=== PATIENT | male | born 1960 | race Caucasian/White ===

== ENCOUNTER 2024-08-02 15:37 | Emergency (ER) | payer OTHER, MEDICARE ==
[~2024-08-02] VITALS: Ht 180.3 cm; Wt 75.0 kg
[2024-08-02 18:06] LABS: BASOPHILS # (AUTO) 0.1 X10'3 (0-0.2); BASOPHILS % (AUTO) 0.6 % (0-1); EOSINOPHILS # (AUTO) 0.1 X10'3 (0-0.9); EOSINOPHILS % (AUTO) 1.2 % (0-6); HEMATOCRIT 41.3 % (42.0-52.0); HEMOGLOBIN 13.9 g/dl (14.0-17.9); LYMPHOCYTES # (AUTO) 2.3 X10'3 (1.1-4.8); LYMPHOCYTES % (AUTO) 20.9 % (21-51); MEAN CORPUSCULAR HEMOGLOBIN 33.6 PG (27.0-31.0); MEAN CORPUSCULAR HGB CONC 33.7 g/dL (33.0-36.5); MEAN CORPUSCULAR VOLUME 99.9 FL (78-98); MEAN PLATELET VOLUME 6.9 FL (7.4-10.4); MONOCYTES # (AUTO) 0.7 X10'3 (0-0.9); MONOCYTES % (AUTO) 6.8 % (2-12); NEUTROPHILS # (AUTO) 7.7 X10'3 (1.8-7.7); NEUTROPHILS % (AUTO) 70.5 % (42-75); PLATELET COUNT 315 X10'3 (140-440); RED BLOOD COUNT 4.14 X10'6 (4.70-6.10); RED CELL DISTRIBUTION WIDTH 13.9 % (11.5-14.5); WHITE BLOOD COUNT 10.9 X10'3 (4.5-11.0)
[2024-08-02 18:13] LABS: BILIRUBIN,URINE NEGATIVE (Neg); CLARITY,URINE CLEAR (Clear); COLOR,URINE YELLOW (Yellow); GLUCOSE, URINE NEGATIVE (Neg); KETONES,URINE TRACE mg/dl (Neg); LEUKOCYTE ESTERASE ,URINE NEGATIVE (Neg); NITRITES, URINE NEGATIVE (Neg); OCCULT BLOOD,URINE TRACE-INTACT (Neg); PROTEIN,URINE TRACE mg/dl (Neg); UROBILINOGEN,URINE 0.2 E.U/dL (0.2-1.0)
[2024-08-02 18:18] LABS: UA COLLECTION TYPE NON-SPECIFIED
[2024-08-02 18:31] LABS: ALBUMIN 3.8 G/DL (3.4-5.0); ANION GAP 12 (8-16); BLOOD UREA NITROGEN 7 MG/DL (7-18); BUN/CREATININE RATIO 6.8 (10.0-20.0); CALCIUM 8.2 MG/DL (8.5-10.1); CHLORIDE 101 MMOL/L (99-107); CREATININE 1.03 MG/DL (0.60-1.10); ETHANOL 165 MG/DL (<10); GLUCOSE 61 MG/DL (70-104); POTASSIUM 3.6 MMOL/L (3.5-5.1); SODIUM 139 MMOL/L (135-145); THYROID STIMULATING HORMONE 0.27 ulU/ml (0.34-4.50); TOTAL CARBON DIOXIDE 25.6 MMOL/L (24-32); eCRCL 76 ML/MIN; eGFR 72 ML/MIN
[2024-08-02] MEDS: chlordiazePOXIDE 25mg capsule PO ONE (18:32)
[2024-08-02 18:36] LABS: HYALINE CASTS 0-3 /LPF (NEGATIVE); MUCUS STRANDS FEW /LPF (Neg); SQUAMOUS EPITHELIAL CELL,UR FEW /LPF (FEW)
[2024-08-02 18:37] LABS: BACTERIA,URINE FEW /HPF (Neg); WBC,URINE 0-4 /HPF (0-4)
[2024-08-02 18:50] LABS: URINE AMPHETAMINE SCREEN NEGATIVE (Neg); URINE BARBITUATE SCREEN NEGATIVE (Neg); URINE BENZODIAZEPINES SCREEN NEGATIVE (Neg); URINE CANNABINOID SCREEN POSITIVE (Neg); URINE COCAINE SCREEN NEGATIVE (Neg); URINE METHADONE SCREEN NEGATIVE (Neg); URINE OPIATE SCREEN NEGATIVE (Neg); URINE PHENCYCLIDINE SCREEN NEGATIVE (Neg)
[2024-08-02 19:39] LABS: FREE T4 (FREE THYROXINE) 1.11 NG/DL (0.73-1.40)
[2024-08-03] MEDS: acetaminophen 325mg tablet PO ONE ×2 (02:58→06:29)
[2024-08-03] MEDS: chlordiazePOXIDE 25mg capsule PO ONE ×2 (06:28→17:55)
[2024-08-03] MEDS: ibuprofen tablet 400 MG TABLET PO ONE (17:55)
[2024-08-03] MEDS: acetaminophen 325mg tablet PO PRN (19:15)
[2024-08-04] MEDS: chlordiazePOXIDE 25mg capsule PO ONE (03:33)
[2024-08-04] MEDS: LIDOcaine 5% patch TP ONE (05:50)
[2024-08-04] MEDS: ziprasidone IM 20mg inj **IM only IM ONE (07:22)
[2024-08-04 09:05] VITALS: BP 133/90; PULSE 75; RESP 16; O2SAT 97
[2024-08-04] MEDS ORDERED: OMEP40CA21 PO (09:13)
[2024-08-04] MEDS ORDERED: ALBU8HFA INH (09:13)
[2024-08-04] MEDS ORDERED: PROP10TA10 PO (09:13)
[2024-08-04] MEDS ORDERED: BICT1TAB PO (09:13)
[2024-08-04] MEDS ORDERED: RISP0.5T74 PO (09:13)
[2024-08-04] MEDS ORDERED: MIRT-87 PO (09:13)
[2024-08-04 15:06] LABS: COVID19 ID NOW NEGATIVE (Neg)
[2024-08-04 17:35] VITALS: TEMP 98.2
== END 2024-08-04 17:37 ==
LOC: ER 15:37
DX: R45.851 Suicidal ideations (principal); Z20.822 Contact with and (suspected) exposure to COVID-19; Z88.0 Allergy status to penicillin; Z79.899 Other long term (current) drug therapy
CPT/HCPCS: 36415; 80048; 80305; 80320; 81001; 84439; 84443; 85025; 87635; 87811; 96372; 99285; J3486